=== PATIENT | male | born 1955 | race Caucasian/White ===

== ENCOUNTER 2021-11-25 12:37 | Emergency (ER) | payer BC, SELFPAY ==
[2021-11-25 12:46] VITALS: BP 153/92; PULSE 92; RESP 20; TEMP 36.1; O2SAT 96
--- NOTE | 2021-11-25 13:21 | ED.URI ---
HPI - URI/Sore Throat General Chief Complaint: Upper Respiratory Infection Stated Complaint: Fever/Sore Throat Time Seen by Provider: 11/25/21 13:21 Source: patient Mode of arrival: ambulatory Limitations: no limitations History of Present Illness HPI Narrative: 66-year-old male presents with complaint of fatigue, body aches, nasal congestion, postnasal drainage, headaches for a week. States that he has been very fatigued and has not wanted to get off the couch. Denies cough and shortness of breath. Is not taking any [id number] medication to treat his symptoms. States it has been 1 week and I am just not feeling better . All systems reviewed and negative except as noted above. Related Data Home Medications Medication Instructions Recorded Confirmed No Home Medications 11/25/21 11/25/21 Review of Systems Review of Systems: CONSTITUTIONAL: Denies fever. Reports chills, or sweats. EYES: Denies visual changes, redness, or discharge. ENT: Reports rhinorrhea, congestion. Denies sore throat, or otalgia. CARDIOVASCULAR: Denies chest pain, palpitations, or edema. RESPIRATORY: Reports cough. Denies dyspnea. GASTROINTESTINAL: Denies abdominal pain, nausea, vomiting, or diarrhea. GENITOURINARY: Denies dysuria or hematuria. SKIN: Denies rash or itching. MUSCULOSKELETAL: Denies back pain, joint pain, or myalgia. NEUROLOGIC: Denies headache, numbness, or weakness. PSYCHIATRIC: Denies anxiety or depression. All other systems reviewed are negative, except as documented in HPI. PMFSH Comments At time of signature, agree with nursing past medical, surgical, social and family history. There is no relevant family history pertinent to the presenting complaint. Exam Narrative: GENERAL: This is a well-nourished, well-developed patient, in no apparent distress. HEAD: normocephalic, atraumatic. EYES: PERRL. Sclera clear/white. Vision is grossly intact. EARS: External ears normal, auditory canals clear and without drainage, TMs normal without perforation. Hearing grossly intact. NOSE: External nose normal with clear nasal drainage. THROAT: Mucous membranes moist, erythema to posterior pharynx. NECK: Neck supple, non-tender without lymphadenopathy, masses or thyromegaly. CARDIOVASCULAR: Regular rate and rhythm without murmurs, gallops, or rubs. RESPIRATORY: Clear to auscultation. Breath sounds equal bilaterally. No wheezes, rales, or rhonchi. SKIN: warm, Dry, intact with no suspicious lesions or rash, good texture and turgor. NEURO: awake, alert, and oriented to person, place and time. There were no obvious focal neurologic abnormalities. EXTREMITIES: No joint tenderness, effusion, or edema noted. Course Course Level of Care: Express Care Visit Vital Signs Vital signs: Vital Signs Temperature 36.1 C L 11/25/21 12:46 Pulse Rate 92 11/25/21 12:46 Respiratory Rate 20 11/25/21 12:46 Blood Pressure 153/92 H 11/25/21 12:46 Pulse Oximetry 96 11/25/21 12:46 Oxygen Delivery Room Air 11/25/21 12:46 Temperature 36.1 C L 11/25/21 12:46 Pulse Rate 92 11/25/21 12:46 Respiratory Rate 20 11/25/21 12:46 Blood Pressure 153/92 H 11/25/21 12:46 Pulse Oximetry 96 11/25/21 12:46 Oxygen Delivery Room Air 11/25/21 12:46 Reviewed MDM - URI/Sore Throat MDM Narrative Medical decision making narrative: At time of signature, agree with nursing past medical, surgical, social and family history. There is no relevant family history pertinent to the presenting complaint. Lab Data Labs: Lab Results 11/25/21 Range/Units 13:25 POC SARS CoV-2 Ag Positive (Negative) Discharge Plan Discharge Clinical Impression: COVID-19 Patient Disposition: Home, Self-Care Condition: Stable Instructions: COVID-19 (Coronavirus Disease 2019) (ED) Additional Instructions: Your covid test was positive today. Covid is a virus and symptoms may last 7 to 10 days. Take an over the counter medicati
== END 2021-11-25 13:57 | disposition home or self-care (01) ==
PROVIDERS: Emergency Provider Nurse Practitioner Family
DX: U07.1 COVID-19 (principal)
CPT/HCPCS: 87426; 99213; C9803; G0463

== ENCOUNTER 2022-07-18 10:11 | Emergency (ER) | payer MEDICARE, MEDICAID, SELFPAY ==
--- NOTE | ~2022-07-18 | XR_ITS ---
EXAMINATION: XR chest 2V 07/18/2022 10:39 INDICATION: Midsternal chest pain PROCEDURE: 2 view chest COMPARISON: No prior studies for comparison. FINDINGS: There is lingular atelectasis. No focal pneumonia, edema. The cardiomediastinal silhouette is within normal limits. There are no pleural effusions. There is no pneumothorax suspected. IMPRESSION: 1: NO ACUTE CARDIOPULMONARY DISEASE. Reviewed, dictated and finalized at location A.
[2022-07-18 10:22] VITALS: BP 151/85; PULSE 83; RESP 20; TEMP 36.7; O2SAT 98
--- NOTE | 2022-07-18 10:34 | ED.GENADULT ---
HPI - General Adult General Chief complaint: Nausea/Vomiting/Diarrhea Stated complaint: Vomiting Time Seen by Provider: 07/18/22 10:34 Source: patient, RN notes reviewed and old records reviewed Mode of arrival: ambulatory Limitations: no limitations History of Present Illness HPI narrative: 67 year old male presents to [facility] care with complaints of not being able to eat or drink since Tuesday. He reports eating some roast beef on Tuesday and felt it lodge in his esophagus and can't keep anything down. Reports that he is very thirsty and his urine is dark he thinks he is dehydrated. Patient reports one previous episode where food got stuck which dislodged on his own. Patient denies any shortness of breath with SAO2 98% on room air. MD complaint: feels like food stuck Onset (ago): day(s) (3) Treatments prior to arrival: none Related Data Home Medications Medication Instructions Recorded Confirmed No Home Medications 11/25/21 07/18/22 Allergies Allergy/AdvReac Type Severity Reaction Status Date / Time No Known Allergies Allergy Verified 07/18/22 10:34 Review of Systems Review of Systems: CONSTITUTIONAL: Denies fever, chills, or sweats. EYES: Denies visual changes, redness, or discharge. ENT: Denies rhinorrhea, congestion, sore throat, or otalgia. CARDIOVASCULAR: Denies chest pain, palpitations, or edema. RESPIRATORY: Denies cough or dyspnea. GASTROINTESTINAL: Denies abdominal pain,no nausea,positive for vomiting feels like something stuck in esophagus, denies diarrhea. GENITOURINARY: Denies dysuria or hematuria. SKIN: Denies rash or itching. MUSCULOSKELETAL: Denies back pain, joint pain, or myalgia. NEUROLOGIC: Denies headache, numbness, or weakness. PSYCHIATRIC: Denies anxiety or depression. All systems reviewed & are unremarkable except as noted in HPI and below PMFSH Past Medical History Medical History (Updated 07/19/22 @ 22:25 by Yesenia Castillo NP) Fracture of right upper extremity Ganglion cyst of wrist removed Ulcer gastric Surgical History Surgical History (Updated 07/18/22 @ 11:04 by Yesenia Castillo NP) History of tonsillectomy and adenoidectomy Social History Social History (Updated 07/18/22 @ 11:08 by Yesenia Castillo NP) Smoking status: Former smoker Additional smoking assessment comments: quit one year ago,prior states smoked occasionally Alcohol intake: current Alcohol use details: social Substance use type: does not use Gender identity (if verbalized by the patient): Male Comments At time of signature, agree with nursing past medical, surgical, social and family history. There is no relevant family history pertinent to the presenting complaint Exam Narrative: GENERAL: Well-appearing, well-nourished, and in no acute distress. HEAD: Normocephalic, atraumatic. EYES: PERRLA and EOMI. ENT: Nares clear, no rhinorrhea or epistaxis. Mucous membranes dry. NECK: Supple.no lymphadenopathy CHEST: Clear to auscultation. No respiratory distress. no cough noted SAO2 98% on room air HEART: Regular rate and rhythm. No murmur heard. Normal peripheral pulses. ABDOMEN: Soft, nontender, nondistended, normal active bowel sounds. feels like food lodged in esophagus,unable to eat or drink vomits it, is thirsty EXTREMITIES: Normal range of motion. No edema. SKIN: Warm, dry, no rash. NEURO: No focal deficits. Alert and oriented x3. Course Course Emergency Course: Patient is aware of diagnosis, understands and agrees to treatment plan.? Anticipatory guidance given.? Patient agrees to follow-up as directed and is aware of reasons to seek care at the emergency department. Portions of this record may have been created with voice recognition software Level of Care: Express Care Visit Vital Signs Vital signs: Vital Signs Temperature 36.7 C 07/18/22 10:22 Pulse Rate 83 07/18/22 10:22 Respiratory Rate 20 07/18/22 10:22 Blood Pressure 151/85 H 07/18/22 10:22 Pulse Oximetry
== END 2022-07-18 10:55 | disposition home or self-care (01) ==
PROVIDERS: Emergency Provider Registered Nurse; PCP Family Medicine
DX: T18.108A Unspecified foreign body in esophagus causing other injury, initial encounter (principal); Z87.891 Personal history of nicotine dependence; X58.XXXA Exposure to other specified factors, initial encounter
CPT/HCPCS: 71046; 99213; G0463

== ENCOUNTER 2022-07-27 11:21 | Outpatient (CLI) | payer MEDICARE, MEDICAID, SELFPAY ==
[2022-07-27 19:06] LABS: Basophils Absolute Auto 0.1 K/mm3 (0.0-0.1); Basophils Percent Auto 0.7 % (0.2-1.2); Eosinophils Absolute Auto 0.3 K/mm3 (0-0.3); Eosinophils Percent Auto 3.7 % (0-4.4); Immature Granulocyte Absolute 0.02 K/mm3 (0.00-0.031); Immature Granulocyte Percent A 0.2 % (0-0.5); Lymphocytes Absolute Auto 3.42 K/mm3 (0.9-3.2); Lymphocytes Percent Auto 39.9 % (18.3-44.2); Mean Corpuscular HGB Conc 33.3 g/dl (32-36); Mean Corpuscular Volume 87.1 fl (80-100); Mean Platelet Volume 10.1 fl (7.4-10.4); Monocytes Absolute Auto 0.5 K/mm3 (0.1-0.6); Monocytes Percent Auto 6.2 % (2.6-8.5); Neutrophils Absolute Auto 4.2 K/mm3 (1.3-6.7); Neutrophils Percent Auto 49.3 % (45.5-73.1); Platelet Count Result 345 k/mm3 (150-375); Red Blood Count 4.82 M/mm3 (4.6-6.20); Red Cell Distribution Width 16.3 % (11.5-14.5); White Blood Count 8.6 K/mm3 (4.5-10.0)
[2022-07-27 20:18] LABS: Prostate Specific Antigen 0.3 ng/mL (< OR = 4.0)
[2022-07-27 20:28] LABS: Alanine Aminotransferase 27 U/L (6-50); Alkaline Phosphatase 104 U/L (38-126); Anion Gap 5 mmol/L (8-16); Aspartate Amino Transferase 48 U/L (17-59); Bilirubin,Total 0.5 mg/dL (0.2-1.3); Blood Urea Nitrogen 16 mg/dL (9-20); Calcium 9.3 mg/dL (8.4-10.2); Carbon Dioxide 27 mmol/L (22-30); Chloride 103 mmol/L (98-107); Cholesterol 123 mg/dL (0-200); Estimated Glomerular Filt Rate > 60; Glucose 97 mg/dL (65-110); HDL Direct 35 mg/dL; Potassium 4.6 mmol/L (3.4-5.0); Sodium 135 mmol/L (137-145); Triglycerides 67 mg/dL (<150)
[2022-07-27 20:38] LABS: Hemoglobin A1C 5.9 % (<5.7)
[2022-07-27 20:42] LABS: LDL Cholesterol Direct 61 mg/dL
== END 2022-07-27 11:22 | disposition home or self-care (01) ==
PROVIDERS: PCP Family Medicine; Visit Provider Family Medicine
DX: E78.5 Hyperlipidemia, unspecified (principal); Z79.899 Other long term (current) drug therapy; Z12.5 Encounter for screening for malignant neoplasm of prostate
CPT/HCPCS: 36415; 80053; 80061; 83036; 84153; 85025; G0103

== ENCOUNTER 2023-02-06 13:04 | Emergency (ER) | payer OTHER, SELFPAY ==
[2023-02-06 13:10] VITALS: BP 140/80; PULSE 87; RESP 20; TEMP 36.6; O2SAT 97
--- NOTE | 2023-02-06 14:31 | ED.GENADULT ---
HPI - General Adult General Chief complaint: Wound/Laceration Stated complaint: left leg vs chain saw Source: patient Mode of arrival: ambulatory Limitations: no limitations History of Present Illness HPI narrative: Patient presents for evaluation of a laceration to the anterior aspect of the left thigh. He accidentally cut himself with a chain saw just [employer]. He reports mild pain in the affected area without descriptive quality or numerical rating. No loss of range of motion. No paresthesias. Last tetanus 1--2 years ago. No fever, chills, purulence from wound. He is not diabetic. He is a current some day smoker. Related Data Home Medications Medication Instructions Recorded Confirmed atorvastatin 40 mg tablet 40 mg PO DAILY 07/27/22 lisinopril 10 mg tablet 10 mg PO DAILY 07/27/22 pantoprazole 40 mg tablet,delayed 40 mg PO QAM 07/27/22 release pantoprazole 40 mg tablet,delayed 40 mg PO QHS 07/27/22 release Allergies Allergy/AdvReac Type Severity Reaction Status Date / Time No Known Allergies Allergy Verified 02/06/23 14:33 Review of Systems Review of Systems: CONSTITUTIONAL: Denies fever, chills, or sweats. EYES: Denies visual changes, redness, or discharge. ENT: Denies rhinorrhea, congestion, sore throat, or otalgia. CARDIOVASCULAR: Denies chest pain, palpitations, or edema. RESPIRATORY: Denies cough or dyspnea. GASTROINTESTINAL: Denies abdominal pain, nausea, vomiting, or diarrhea. GENITOURINARY: Denies dysuria or hematuria. SKIN: Reports laceration to anterior aspect of left thigh MUSCULOSKELETAL: Denies back pain, joint pain, or myalgia. NEUROLOGIC: Denies headache, numbness, dizziness, or weakness. PSYCHIATRIC: Denies anxiety or depression. [facility] Past Medical History Medical History Fracture of right upper extremity Ganglion cyst of wrist removed Ulcer gastric Surgical History Surgical History History of tonsillectomy and adenoidectomy Family History Family History (Updated 02/06/23 @ 14:34 by DONELL Gamboa, TREVIN) Mother Family history non-contributory Social History Social History Smoking status: Current some day smoker Tobacco type: cigarettes Additional smoking assessment comments: quit one year ago,prior states smoked occasionally Alcohol intake: current Alcohol use details: social Not Much Substance use: current Lack of Transportation: YES Lack of Food: Never True Current Housing: I Have Housing Concerned About Future Housing: No Difficulty Paying Gas/Electric Bills: No Difficulty Paying for Meds: No Currently Unemployed: No Education: High School Diploma/GED Difficulty w/ Childcare or Family Care: No Occupation/Education: retired Gender identity (if verbalized by the patient): Male Sexual Orientation (if Verbalized by the Patient): Straight or Heterosexual Agree to blood products: Yes Exam Narrative: GENERAL: Well-appearing, well-nourished, and in no acute distress. HEAD: Normocephalic, atraumatic. EYES: PERRLA and EOMI. ENT: Nares clear, no rhinorrhea or epistaxis. Mucous membranes moist. Oropharynx without tonsillar hypertrophy exudate or other lesions. Bilateral TMs pearly mcclellan nonbulging NECK: Supple. No adenopathy or masses. No carotid bruits or JVD CHEST: Clear to auscultation. No respiratory distress. No wheezes rales or rhonchi HEART: Regular rate and rhythm. No murmur heard. Normal peripheral pulses. ABDOMEN: Soft, nontender, nondistended, normal active bowel sounds. EXTREMITIES: Normal range of motion. No edema. SKIN: There is an 8 cm linear laceration in a transverse formation across the anterior aspect of the left thigh. Subcutaneous tissue is visible. Wound bed is beefy red with small amount of sanguinous drainage prese
== END 2023-02-06 15:04 | disposition home or self-care (01) ==
PROVIDERS: Emergency Provider Nurse Practitioner; PCP Family Medicine
DX: S71.112A Laceration without foreign body, left thigh, initial encounter (principal); F17.210 Nicotine dependence, cigarettes, uncomplicated; W29.3XXA Contact with powered garden and outdoor hand tools and machinery, initial encounter
CPT/HCPCS: 12004; 99213; G0463; L1830

== ENCOUNTER 2023-07-19 10:30 | Outpatient (CLI) | payer MEDICARE, MEDICAID, SELFPAY ==
[2023-07-19 18:19] LABS: Basophils Absolute Auto 0.1 K/mm3 (0.0-0.1); Basophils Percent Auto 0.8 % (0.2-1.2); Eosinophils Absolute Auto 0.4 K/mm3 (0-0.3); Eosinophils Percent Auto 3.8 % (0-4.4); Hematocrit 43.9 % (42.0-52.0); Hemoglobin 13.9 g/dL (14.0-18.0); Immature Granulocyte Absolute 0.02 K/mm3 (0.00-0.031); Immature Granulocyte Percent A 0.2 % (0-0.5); Lymphocytes Absolute Auto 3.68 K/mm3 (0.9-3.2); Lymphocytes Percent Auto 37.8 % (18.3-44.2); Mean Corpuscular HGB Conc 31.7 g/dl (32-36); Mean Corpuscular Hemoglobin 29.4 pg (26-34); Mean Platelet Volume 10.1 fl (7.4-10.4); Monocytes Absolute Auto 0.7 K/mm3 (0.1-0.6); Monocytes Percent Auto 7.1 % (2.6-8.5); Neutrophils Absolute Auto 4.9 K/mm3 (1.3-6.7); Neutrophils Percent Auto 50.3 % (45.5-73.1); Platelet Count Result 355 k/mm3 (150-375); Red Blood Count 4.72 M/mm3 (4.6-6.20); Red Cell Distribution Width 16.1 % (11.5-14.5); White Blood Count 9.7 K/mm3 (4.5-10.0)
[2023-07-19 18:42] LABS: Alanine Aminotransferase 19 U/L (6-50); Alkaline Phosphatase 88 U/L (38-126); Anion Gap 2 mmol/L (8-16); Aspartate Amino Transferase 63 U/L (17-59); Bilirubin,Total 0.4 mg/dL (0.2-1.3); Blood Urea Nitrogen 16 mg/dL (9-20); Calcium 9.6 mg/dL (8.4-10.2); Carbon Dioxide 28 mmol/L (22-30); Chloride 103 mmol/L (98-107); Cholesterol 133 mg/dL (0-200); Estimated Glomerular Filt Rate > 60; Glucose 86 mg/dL (65-110); HDL Direct 39 mg/dL; Magnesium 2.5 mg/dL (1.6-2.3); Potassium 4.5 mmol/L (3.4-5.0); Sodium 133 mmol/L (137-145); Triglycerides 83 mg/dL (<150)
[2023-07-19 18:53] LABS: LDL Cholesterol Direct 77 mg/dL
== END 2023-07-19 10:31 | disposition home or self-care (01) ==
PROVIDERS: PCP Nurse Practitioner Adult Health; Visit Provider Nurse Practitioner Adult Health
DX: B35.1 Tinea unguium (principal); I10 Essential (primary) hypertension
CPT/HCPCS: 36415; 80053; 80061; 83735; 85025

== ENCOUNTER 2023-08-09 07:47 | Outpatient (CLI) | payer MEDICARE, MEDICAID, SELFPAY ==
--- NOTE | ~2023-08-09 | US_ITS ---
EXAMINATION: US aorta [facility] DATE: 08/09/2023 08:52 INDICATION: Abdominal aortic aneurysm screening with risk factors of hypertension, prior smoking and hypercholesterolemia. TECHNIQUE: Grayscale, color Doppler, and pulsed Doppler images of the aorta and common iliac arteries were obtained. COMPARISON: None. FINDINGS: The proximal aorta was unable to be visualized due to combination body habitus and shadowing bowel ga s. The mid aorta measures 1.9 cm. The distal aorta measures 1.8 cm. The right common iliac artery peggy sures 1.4 cm. The left common iliac artery measures 1.5 cm. IMPRESSION: 1. Normal caliber mid to distal abdominal aorta. Proximal abdominal aorta is not clearly visualized. Reviewed, dictated and finalized at location B. IMPRESSION: 1. Normal caliber mid to distal abdominal aorta. Proximal abdominal aorta is no t clearly visualized.
== END 2023-08-09 07:48 | disposition home or self-care (01) ==
PROVIDERS: PCP Family Medicine; Visit Provider Family Medicine
DX: I10 Essential (primary) hypertension (principal); Z87.891 Personal history of nicotine dependence
CPT/HCPCS: 76706

== ENCOUNTER 2023-10-27 09:22 | Outpatient (CLI) | payer MEDICARE, SELFPAY ==
[2023-10-27 19:04] LABS: Hematocrit 43.4 % (42.0-52.0); Hemoglobin 13.9 g/dL (14.0-18.0); Mean Corpuscular Hemoglobin 29.4 pg (26-34); Mean Corpuscular Volume 91.8 fl (80-100); Mean Platelet Volume 9.8 fl (7.4-10.4); Platelet Count Result 339 k/mm3 (150-375); Red Blood Count 4.73 M/mm3 (4.6-6.20); Red Cell Distribution Width 16.5 % (11.5-14.5); White Blood Count 9.4 K/mm3 (4.5-10.0)
[2023-10-27 19:05] LABS: Alanine Aminotransferase 18 U/L (6-50); Alkaline Phosphatase 92 U/L (38-126); Anion Gap 5 mmol/L (4-12); Aspartate Amino Transferase 62 U/L (17-59); Bilirubin,Total 0.5 mg/dL (0.2-1.3); Blood Urea Nitrogen 16 mg/dL (9-20); Calcium 9.7 mg/dL (8.4-10.2); Carbon Dioxide 29 mmol/L (22-30); Chloride 103 mmol/L (98-107); Estimated Glomerular Filt Rate > 60; Glucose 114 mg/dL (65-110); Potassium 4.5 mmol/L (3.4-5.0); Sodium 137 mmol/L (137-145)
[2023-10-27 19:31] LABS: Prostate Specific Antigen 0.3 ng/mL (< OR = 4.0)
== END 2023-10-27 09:23 | disposition home or self-care (01) ==
LOC: ANHBWCLAB 09:24
PROVIDERS: PCP Nurse Practitioner Adult Health; Visit Provider Nurse Practitioner Adult Health
DX: Z12.5 Encounter for screening for malignant neoplasm of prostate (principal); I10 Essential (primary) hypertension
CPT/HCPCS: 36415; 80053; 84153; 85027; G0103

== ENCOUNTER 2023-11-11 12:31 | Outpatient (CLI) | payer MEDICARE, SELFPAY ==
--- NOTE | ~2023-11-11 | US_ITS ---
EXAMINATION: US scrotum doppler DATE: 11/11/2023 13:13 INDICATION: Right testicular pain and swelling TECHNIQUE: Testicular sonogram utilizing grayscale and Doppler COMPARISON: None. FINDINGS: The right testis measures 4.4 x 2.5 x 2.9 cm. The left testis measures 4.2 x 2.7 x 3.1 cm. Symmetric normal grayscale appearance to both testes. There is normal vascular flow to both testes. A normal ri ght epididymis not visualized. There is a large cystic structure with incomplete thin septations in t he right hemiscrotum which measures at least 7.1 x 3.7 cm. The cystic lesion appears separate from a minimal amount of anechoic fluid along the margin of the right testis and appears to arise from the r egion of hypoechoic soft tissue. Appearance suggests a large epididymal cyst arising from the right e pididymis. The left epididymis is normal with normal vascular flow. Minimal left hydrocele. There is is no varicocele. IMPRESSION: 1. 7.1 x 3.7 cm cystic lesion in the right hemiscrotum most likely representing a large epididymal c yst arising from and markedly expanding and distorting the right epididymis. 2. Normal bilateral testes and left epididymis. Reviewed, dictated and finalized at location A. IMPRESSION: 1. 7.1 x 3.7 cm cystic lesion in the right hemiscrotum most likely representin g a large epididymal cyst arising from and markedly expanding and distorting th e right epididymis. 2. Normal bilateral testes and left epididymis.
== END 2023-11-11 12:32 | disposition home or self-care (01) ==
PROVIDERS: PCP Nurse Practitioner Adult Health; Visit Provider Nurse Practitioner Adult Health
DX: N50.89 Other specified disorders of the male genital organs (principal)
CPT/HCPCS: 76870; 93976

== ENCOUNTER 2024-09-26 11:52 | Outpatient (CLI) | payer MEDICARE, SELFPAY ==
--- OUTSIDE RECORDS SUMMARY | 2024-09-26 11:56 | XMS_ITS | Clinical Summary ---
Author Organization [facility] Address [address] [place] [address] Phone Care Team Providers Care Primary Clinician Name Role Phone Molina Zavala MD Primary Care Provider [phone] Yadi Braswell MD Unavailable [phone] Allergies No known active allergies Medications lisinopril (PRINIVIL, ZESTRIL) 10 MG Tablet Take 1 Tablet by mouth daily. 90 Tablet 07/19/2022 Active atorvastatin (LIPITOR) 40 MG Tablet Take 1 Tablet by mouth daily. 90 Tablet 07/19/2022 Active pantoprazole (PROTONIX) 40 MG Tablet Delayed Response Take 1 Tablet by mouth in the morning and at bedtime. 30 Tablet 07/19/2022 Active Active Problems Problem Noted Date Diagnosed Date Peptic ulcer disease 07/19/2022 Esophageal stricture 07/18/2022 Morbid obesity 07/18/2022 Hypertension 07/18/2022 Social History Tobacco Use Types Packs/Day Years Used Date Smoking Tobacco: Former Cigarettes Smokeless Tobacco: Never Tobacco Cessation:Counseling Given: Not Answered Alcohol Use Standard Drinks/Week Comments Yes 0 (1 standard drink = 0.6 oz pur e alcohol) occasional Sex and Gender Information Value Date Recorded Sex Assigned at Not on file Legal Sex Male 10:01 PM CDT Gender Identity Not on file Sexual Orientation Not on file Last Filed Vital Signs Vital Sign Reading Time Taken Comments Blood Pressure 142/84 12/03/2022 4:15 PM CDT Pulse 63 12/03/2022 4:15 PM CDT Temperature 36.7 C (98 F) 12/03/2022 2:17 PM CDT Respiratory Rate 10 12/03/2022 4:15 PM CDT Oxygen Saturation 98% 12/03/2022 4:15 PM CDT Inhaled Oxygen Concentration - - Weight 138.8 kg (306 lb) 12/03/2022 2:17 PM CDT Height 186.7 cm (6' 1.5) 12/03/2022 2:17 PM CDT Body Mass Index 39.82 12/03/2022 2:17 PM CDT Plan of Treatment Health Maintenance Due Date Last Done Comments Hepatitis C Virus (HCV) Screening 1957 Colonoscopy 2002 Colorectal Cancer Screening 2002 Cologuard 2007 Immunochemical Fecal Occult Blood 2007 Zoster Immunization (1 of 2) 2007 PSA Discussion 02/09/2012 Pneumococcal Immunization (5 0+ years) (2 of 2 - PCV) 07/28/2023 07/27/2022 Influenza Immunization (#1) 2024 12/01/2021 SARS-COV-2 Immunization ( season) 2024 12/01/2021, 09/11/2020, 08/14/2020 Respiratory Syncytial Virus (RSV) Immunization (Adult) (1 - 1-dose 75+ series) 02/09/2032 DTaP/Tdap/Td Immunization Discontinued 07/27/2022 TdaP Immunization Completed 07/27/2022 Hepatitis B Immunization Aged Out No longer eligible based on patient's age to complete this topic Meningococcal Immunization (ACWY) Aged Out No longer eligible based on patient's age to complete this topic Rotavirus Immunization Aged Out No lo nger eligible based on patient's age to complete this topic Insurance MEDICARE C [employer] Advance Directives * Full Code (Latest Code Status on File) Date Activated Date Inactivated Comments 07/18/2022 6:31 PM 07/19/2022 11:08 PM CPR-Full Tr eatment: FULL ARREST: Attempt Resuscitation/CPR wit intubation and mechanical ventilation. PRE-ARREST: Use entire range of life support measures to stabilize the patient. Care Teams Primary Clinician Relationship Specialty Start Date End Date Molina Zavala MD [address] [place] [id number] PCP - General Family Medicine 07/29/22 Yadi Braswell MD [address] [place] [address] Consulting Physician Gastroenterology 07/29/22
[2024-09-26 19:45] LABS: Alanine Aminotransferase 19 U/L (6-50); Albumin Level 3.9 g/dL (3.5-5.1); Alkaline Phosphatase 102 U/L (38-126); Anion Gap 5 mmol/L (4-12); Aspartate Amino Transferase 65 U/L (17-59); Bilirubin,Total 0.6 mg/dL (0.2-1.3); Blood Urea Nitrogen 20 mg/dL (9-20); Carbon Dioxide 27 mmol/L (22-30); Chloride 103 mmol/L (98-107); Cholesterol 132 mg/dL (0-200); Estimated Glomerular Filt Rate > 60; Glucose 99 mg/dL (65-110); HDL Direct 38 mg/dL; Magnesium 2.3 mg/dL (1.6-2.3); Potassium 5.1 mmol/L (3.4-5.0); Sodium 135 mmol/L (137-145); Triglycerides 66 mg/dL (<150)
[2024-09-26 19:56] LABS: LDL Cholesterol Direct 59 mg/dL
[2024-09-26 20:15] LABS: Prostate Specific Antigen 0.4 ng/mL (< OR = 4.0)
[2024-09-26 21:02] LABS: Hemoglobin A1C 5.9 % (<5.7)
== END 2024-09-26 11:53 | disposition home or self-care (01) ==
LOC: ANHBWCLAB 11:53
PROVIDERS: PCP Nurse Practitioner Adult Health; Visit Provider Nurse Practitioner Adult Health
DX: Z12.5 Encounter for screening for malignant neoplasm of prostate (principal); I10 Essential (primary) hypertension; R73.9 Hyperglycemia, unspecified
CPT/HCPCS: 36415; 80053; 80061; 83036; 83735; 84153; G0103

== ENCOUNTER 2024-10-10 15:14 | Outpatient (CLI) | payer MEDICARE, SELFPAY ==
--- OUTSIDE RECORDS SUMMARY | 2024-10-10 17:37 | XMS_ITS | Clinical Summary ---
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 Care Teams [employer] P[employer] Operator Relationship Specialty Start Date End Date Molina Zavala MD [address] [place] [id number] PCP - General Family Medicine 07/29/22 Yadi Braswell MD [address] [place] [address] Consulting Physician Gastroenterology 07/29/22
[2024-10-10 21:16] LABS: Potassium 4.6 mmol/L (3.4-5.0)
== END 2024-10-10 15:15 | disposition home or self-care (01) ==
LOC: ANHBWCLAB 15:15
PROVIDERS: PCP Nurse Practitioner Adult Health; Visit Provider Nurse Practitioner Adult Health
DX: E87.5 Hyperkalemia (principal)
CPT/HCPCS: 36415; 84132